=== PATIENT | male | born 1960 | race Caucasian/White ===

== ENCOUNTER 2020-03-17 02:01 | Emergency (ER) | payer OTHER ==
[2020-03-17] MEDS ORDERED: METHYLPREDNISOLONE SOD SUCC 125MG/2ML VIAL ONE (02:24)
[2020-03-17 02:38] LABS: BASOPHILS % (AUTO) 0.8 % (0.0-5.0); EOSINOPHILS % (AUTO) 15.1 % (0.0-8.0); HEMATOCRIT 40.6 % (42-54); LYMPHOCYTES % (AUTO) 21.6 % (21.0-51.0); MEAN CORPUSCULAR HEMOGLOBIN 31.3 pg (27.0-33.0); MEAN CORPUSCULAR HGB CONC 34.2 g/dL (32.0-36.0); MEAN CORPUSCULAR VOLUME 91.4 fL (79-99); MONOCYTES % (AUTO) 13.5 % (3.0-13.0); NEUTROPHILS % (AUTO) 48.5 % (40.0-77.0); PLATELET COUNT (AUTO) 193 K/uL (130-400); RED BLOOD CELL COUNT(AUTO) 4.44 MIL/uL (4.50-6.20); RED CELL DISTRIBUTION WIDTH 13.2 % (11.0-15.5); WHITE BLOOD COUNT (AUTO) 7.6 K/uL (4.8-10.8)
[2020-03-17 02:58] LABS: CREATININE 1.3 mg/dL (0.5-1.5); POTASSIUM 3.4 mmol/L (3.5-5.1)
[2020-03-17 03:02] LABS: ALBUMIN 3.7 g/dL (3.5-5.0); BILIRUBIN,TOTAL 0.7 mg/dL (0.2-1.0); TOTAL PROTEIN, SERUM 6.4 g/dL (6.0-8.3)
[2020-03-17] MEDS ORDERED: ALBUTEROL SULFATE 0.083% 2.5 MG/3 ML INH IH ONE (04:55)
[2020-03-17] MEDS ORDERED: CEFTRIAXONE SODIUM 1 GM ONE (04:58)
[2020-03-19] MEDS ORDERED: PRED20TA3 PO (08:52)
[2020-03-19] MEDS ORDERED: AZIT500T4 PO (08:56)
== END 2020-03-17 06:41 | disposition home or self-care (01) ==
LOC: EDH 02:01
DX: J44.1 Chronic obstructive pulmonary disease with (acute) exacerbation (principal); Z91.041 Radiographic dye allergy status
CPT/HCPCS: 36415; 71045; 80053; 82550; 84484; 85025; 93005; 94640 ×2; 96374; 96375; 99285; J0696; J2930

== ENCOUNTER 2020-03-17 15:37 | Inpatient (IN) | payer OTHER ==
[~2020-03-17] VITALS: Ht 177.8 cm; Wt 75.8 kg
[2020-03-17] MEDS ORDERED: IPRATROPIUM/ALBUTEROL SULFATE 3 ML SOLUTION IH ONE (16:18)
[2020-03-17] MEDS ORDERED: METHYLPREDNISOLONE SOD SUCC 125MG/2ML VIAL ONE (16:26)
[2020-03-17 16:33] LABS: BASOPHILS % (AUTO) 0.2 % (0.0-5.0); EOSINOPHILS % (AUTO) 0.2 % (0.0-8.0); HEMATOCRIT 44.1 % (42-54); LYMPHOCYTES % (AUTO) 12.8 % (21.0-51.0); MEAN CORPUSCULAR HEMOGLOBIN 30.7 pg (27.0-33.0); MEAN CORPUSCULAR HGB CONC 33.8 g/dL (32.0-36.0); MEAN CORPUSCULAR VOLUME 90.9 fL (79-99); MONOCYTES % (AUTO) 5.3 % (3.0-13.0); NEUTROPHILS % (AUTO) 80.4 % (40.0-77.0); PLATELET COUNT (AUTO) 224 K/uL (130-400); RED BLOOD CELL COUNT(AUTO) 4.85 MIL/uL (4.50-6.20); RED CELL DISTRIBUTION WIDTH 13.2 % (11.0-15.5); WHITE BLOOD COUNT (AUTO) 6.2 K/uL (4.8-10.8)
[2020-03-17 16:45] LABS: INR 0.97 (0.85-1.15); PARTIAL THROMBOPLASTIN TIME 25.6 SEC (26.3-35.5); PROTHROMBIN TIME 10.5 SEC (9.6-11.6)
[2020-03-17 16:46] LABS: CREATININE 1.3 mg/dL (0.5-1.5); POTASSIUM 4.3 mmol/L (3.5-5.1)
[2020-03-17 16:50] LABS: ALBUMIN 4.1 g/dL (3.5-5.0); BILIRUBIN,TOTAL 0.5 mg/dL (0.2-1.0); TOTAL PROTEIN, SERUM 7.3 g/dL (6.0-8.3)
[2020-03-17 17:05] LABS: B-TYPE NATRIURETIC PEPTIDE 53 pg/mL (0-100)
[2020-03-17] MEDS ORDERED: LIDOCAINE HCL 2% VISCOUS 15 ML UDCUP ONE (17:44)
[2020-03-17] MEDS ORDERED: LACTULOSE 20 GM/30 ML UDCUP PO PRN (18:00)
[2020-03-17] MEDS ORDERED: ACETAMINOPHEN 325 MG TAB PO PRN (18:00)
[2020-03-17] MEDS ORDERED: GUAIFENESIN-DM 200/20 MG 10 ML PO PRN (18:00)
[2020-03-17] MEDS: IPRATROPIUM/ALBUTEROL SULFATE 3 ML SOLUTION IH SCH ×2 (18:32→22:09)
[2020-03-17] MEDS: METHYLPREDNISOLONE SOD SUCC 40MG/ML 1ML IVP SCH (20:00)
[2020-03-17] MEDS: FAMOTIDINE 20MG TAB 20 MG TAB PO SCH (21:00)
[2020-03-17] MEDS: BENZONATATE 100 MG CAPSULE PO SCH (21:00)
[2020-03-17] MEDS ORDERED: FAMOTIDINE 20MG TAB 20 MG TAB ONE (21:58)
[2020-03-17] MEDS ORDERED: LEVETIRACETAM 500 MG TABLET PO ONE (21:59)
[2020-03-17] MEDS ORDERED: AZITHROMYCIN 500MG+NS 250ML 250 ML IV ONE (21:59)
[2020-03-17] MEDS ORDERED: TRAZODONE HCL 50 MG TAB ONE (21:59)
[2020-03-17] MEDS ORDERED: BENZONATATE 100 MG CAPSULE PO ONE (21:59)
[2020-03-18] MEDS ORDERED: METHYLPREDNISOLONE SOD SUCC 40MG/ML 1ML ONE ×4 (00:07→20:55)
[2020-03-18] MEDS: IPRATROPIUM/ALBUTEROL SULFATE 3 ML SOLUTION IH SCH ×6 (02:00→22:45)
[2020-03-18] MEDS: METHYLPREDNISOLONE SOD SUCC 40MG/ML 1ML IVP SCH ×3 (04:00→20:00)
[2020-03-18 06:40] LABS: BASOPHILS % (AUTO) 0.1 % (0.0-5.0); EOSINOPHILS % (AUTO) 0.2 % (0.0-8.0); LYMPHOCYTES % (AUTO) 8.4 % (21.0-51.0); MEAN CORPUSCULAR HEMOGLOBIN 31.1 pg (27.0-33.0); MEAN CORPUSCULAR VOLUME 91.7 fL (79-99); MONOCYTES % (AUTO) 5.6 % (3.0-13.0); NEUTROPHILS % (AUTO) 84.8 % (40.0-77.0); PLATELET COUNT (AUTO) 213 K/uL (130-400); RED BLOOD CELL COUNT(AUTO) 4.69 MIL/uL (4.50-6.20); RED CELL DISTRIBUTION WIDTH 13.2 % (11.0-15.5); WHITE BLOOD COUNT (AUTO) 10.4 K/uL (4.8-10.8)
[2020-03-18 06:59] LABS: ALANINE AMINOTRANSFERASE 42 U/L (12-78); ALBUMIN 3.8 g/dL (3.5-5.0); ASPARTATE AMINOTRANSFERASE 38 U/L (10-37); BILIRUBIN,TOTAL 0.5 mg/dL (0.2-1.0); CARBON DIOXIDE 27 mmol/L (21-32); CHLORIDE 103 mmol/L (101-111); CREATININE 1.1 mg/dL (0.5-1.5); GLOMERULAR FILTR. RATE CALC 73 mL/min (>60); GLUCOSE,RANDOM 157 mg/dL (70-105); POTASSIUM 4.4 mmol/L (3.5-5.1); SODIUM SERUM 139 mmol/L (136-145); UREA NITROGEN, BLOOD 18 mg/dL (7-18)
[2020-03-18 07:15] LABS: CRP QUANTITATIVE < 2.00 mg/L (0.00-9.0)
[2020-03-18 08:10] LABS: ERYTHROCYTE SEDIMENTATION RATE 0 MM/HR (0-20)
[2020-03-18] MEDS: BENZONATATE 100 MG CAPSULE PO SCH ×3 (09:00→21:00)
[2020-03-18] MEDS: FAMOTIDINE 20MG TAB 20 MG TAB PO SCH ×2 (09:00→21:00)
[2020-03-18] MEDS: LEVETIRACETAM 500 MG TABLET PO SCH ×2 (09:00→21:00)
[2020-03-18] MEDS: ENOXAPARIN SODIUM 30 MG/0.3 ML SQ SCH (09:00)
[2020-03-18] MEDS: BUSPIRONE HCL 5 MG TABLET PO SCH ×3 (09:00→21:00)
[2020-03-18] MEDS ORDERED: FAMOTIDINE 20MG TAB 20 MG TAB ONE ×2 (10:05→20:55)
[2020-03-18] MEDS ORDERED: ENOXAPARIN SODIUM 40 MG/0.4 ML SYRINGE SQ ONE (10:06)
[2020-03-18] MEDS ORDERED: LEVETIRACETAM 500 MG TABLET PO ONE ×2 (10:06→20:56)
[2020-03-18] MEDS ORDERED: IPRATROPIUM/ALBUTEROL SULFATE 3 ML SOLUTION IH ONE ×2 (10:25→13:23)
--- NOTE | 2020-03-18 14:25 | NUR ---
DCP CM spoke to pt discussed dc plans. Pt is independent prior to admission, lives at home alone. Denies any equipments/services. Feels safe to go back home, still drives, and arranges own needs. CM tried to call sister on facesheet Yoselin [phone] unable to reach # is not in services. DC plan to home once stable. CM to cont to follow up. Addendum: 03/18/20 at 1427 by MANOJ BECKER LVN CM Amended: Links added.
[2020-03-18] MEDS ORDERED: LACTULOSE 20 GM/30 ML UDCUP ONE (14:54)
[2020-03-18] MEDS: AZITHROMYCIN 500MG+NS 250ML 250 ML IV SCH (18:00)
[2020-03-18] MEDS ORDERED: BENZONATATE 100 MG CAPSULE PO ONE (20:55)
[2020-03-18] MEDS ORDERED: TRAZODONE HCL 50 MG TAB ONE (20:56)
[2020-03-18] MEDS ORDERED: TRAZODONE HCL 50 MG TAB PO SCH (21:00)
[2020-03-18 22:15] VITALS: BP 131/71
[2020-03-18 23:32] VITALS: BP 105/69
[2020-03-19] MEDS: IPRATROPIUM/ALBUTEROL SULFATE 3 ML SOLUTION IH SCH ×3 (01:53→09:37)
[2020-03-19] MEDS: AZITHROMYCIN 500MG+NS 250ML 250 ML IV SCH (03:32)
[2020-03-19] MEDS: METHYLPREDNISOLONE SOD SUCC 40MG/ML 1ML IVP SCH (03:32)
[2020-03-19 03:53] VITALS: BP 113/73
[2020-03-19 04:07] LABS: BASOPHILS % (AUTO) 0.1 % (0.0-5.0); LYMPHOCYTES % (AUTO) 7.4 % (21.0-51.0); MEAN CORPUSCULAR HEMOGLOBIN 30.9 pg (27.0-33.0); MEAN CORPUSCULAR HGB CONC 33.5 g/dL (32.0-36.0); MEAN CORPUSCULAR VOLUME 92.4 fL (79-99); MONOCYTES % (AUTO) 7.4 % (3.0-13.0); NEUTROPHILS % (AUTO) 83.7 % (40.0-77.0); PLATELET COUNT (AUTO) 195 K/uL (130-400); RED BLOOD CELL COUNT(AUTO) 4.33 MIL/uL (4.50-6.20); RED CELL DISTRIBUTION WIDTH 13.2 % (11.0-15.5); WHITE BLOOD COUNT (AUTO) 10.9 K/uL (4.8-10.8)
[2020-03-19 04:23] LABS: ALBUMIN 3.3 g/dL (3.5-5.0); BILIRUBIN,TOTAL 0.5 mg/dL (0.2-1.0); CREATININE 1.3 mg/dL (0.5-1.5); POTASSIUM 3.9 mmol/L (3.5-5.1)
[2020-03-19] MEDS: LEVETIRACETAM 500 MG TABLET PO SCH (08:33)
[2020-03-19] MEDS: FAMOTIDINE 20MG TAB 20 MG TAB PO SCH (08:33)
[2020-03-19] MEDS: ENOXAPARIN SODIUM 30 MG/0.3 ML SQ SCH (08:34)
[2020-03-19] MEDS: BUSPIRONE HCL 5 MG TABLET PO SCH (08:34)
[2020-03-19] MEDS: BENZONATATE 100 MG CAPSULE PO SCH (08:34)
[2020-03-19] MEDS ORDERED: PRED20TA3 PO ×2 (08:52)
[2020-03-19 08:54] VITALS: BP 134/74
[2020-03-19] MEDS ORDERED: AZIT500T4 PO ×2 (08:56)
== END 2020-03-19 11:15 | disposition home or self-care (01) | DRG 202 ==
LOC: EDH 15:37 → EDHIP 18:06 → 4CH 03-18 22:37
PROVIDERS: ADMIT Hospitalist; ATTEND Hospitalist
DX: J45.901 Unspecified asthma with (acute) exacerbation (principal); J44.1 Chronic obstructive pulmonary disease with (acute) exacerbation; G40.909 Epilepsy, unspecified, not intractable, without status epilepticus; Q85.00 Neurofibromatosis, unspecified; J02.9 Acute pharyngitis, unspecified; Z77.22 Contact with and (suspected) exposure to environmental tobacco smoke (acute) (chronic); Z88.8 Allergy status to other drugs, medicaments and biological substances; Z86.73 Personal history of transient ischemic attack (TIA), and cerebral infarction without residual deficits
CPT/HCPCS: 36415; 71045; 80053; 82550; 82728; 83605; 83880; 84145; 84484; 85025; 85610; 85651; 85730; 86140; 87040; 93005; 94640; 94664; G0378; J0456; J1650; J2920; J2930

== ENCOUNTER 2020-06-12 09:04 | Emergency (ER) | payer OTHER ==
[~2020-06-12 09:04] MED LIST: AZIT500T4 PO; PRED20TA3 PO
[2020-06-12] MEDS ORDERED: HYDROCODONE/ACETAMINOPHEN 10/325 MG TAB ONE (09:22)
[2020-06-12] MEDS ORDERED: KETOROLAC TROMETHAMINE 60 MG/2 ML VIAL ONE (09:22)
== END 2020-06-12 10:18 | disposition home or self-care (01) ==
LOC: EDH 09:04
DX: M79.672 Pain in left foot (principal)
CPT/HCPCS: 73630; 96372; 99283; J1885

== ENCOUNTER 2021-03-27 18:58 | Emergency (ER) | payer OTHER ==
[2021-03-27] MEDS ORDERED: SOLU-MEDROL 125MG VIAL ONE (19:15)
[2021-03-27] MEDS ORDERED: IPRATROPIUM/ALBUTEROL SULFATE 3 ML SOLUTION IH ONE (19:17)
[2021-03-27 19:22] LABS: BASOPHILS % (AUTO) 1.7 % (0.0-5.0); EOSINOPHILS % (AUTO) 6.9 % (0.0-8.0); HEMATOCRIT 43.9 % (42-54); MEAN CORPUSCULAR HEMOGLOBIN 29.9 pg (27.0-33.0); MEAN CORPUSCULAR HGB CONC 33.9 g/dL (32.0-36.0); MEAN CORPUSCULAR VOLUME 88.2 fL (79-99); MONOCYTES % (AUTO) 12.6 % (3.0-13.0); NEUTROPHILS % (AUTO) 62.5 % (40.0-77.0); PLATELET COUNT (AUTO) 388 K/uL (130-400); RED BLOOD CELL COUNT(AUTO) 4.98 MIL/uL (4.50-6.20); RED CELL DISTRIBUTION WIDTH 13.7 % (11.0-15.5); WHITE BLOOD COUNT (AUTO) 12.3 K/uL (4.8-10.8)
[2021-03-27 19:32] LABS: INR 0.99 (0.85-1.15); PROTHROMBIN TIME 10.8 SEC (9.6-11.6)
[2021-03-27 19:33] LABS: PARTIAL THROMBOPLASTIN TIME 28.4 SEC (26.3-35.5)
[2021-03-27 19:42] LABS: ALBUMIN 3.9 g/dL (3.5-5.0); CREATININE 1.1 mg/dL (0.5-1.5); POTASSIUM 3.6 mmol/L (3.5-5.1); TOTAL PROTEIN, SERUM 7.5 g/dL (6.0-8.3)
[2021-03-27] MEDS ORDERED: ALBUTEROL 0.083% 2.5 MG/3 ML INH IH ONE (20:16)
[2021-03-27] MEDS ORDERED: LEVOFLOXACIN 500 MG TABLET ONE (20:39)
== END 2021-03-27 21:15 | disposition home or self-care (01) ==
LOC: EDH 18:58
DX: J44.1 Chronic obstructive pulmonary disease with (acute) exacerbation (principal); J20.9 Acute bronchitis, unspecified; Z20.822 Contact with and (suspected) exposure to COVID-19; Z86.73 Personal history of transient ischemic attack (TIA), and cerebral infarction without residual deficits; Z98.890 Other specified postprocedural states; Z91.041 Radiographic dye allergy status
CPT/HCPCS: 36415; 71045; 80053; 84484; 85025; 85610; 85730; 87426; 93005; 94640 ×2; 96374; 99285; J2930; U0003

== ENCOUNTER 2022-04-28 15:23 | Inpatient (IN) | payer OTHER ==
[~2022-04-28] VITALS: Ht 177.8 cm; Wt 67.1 kg
[~2022-04-28 15:23] MED LIST changes: -AZIT500T4 PO; +DOXY100T2 PO
[2022-04-28] MEDS ORDERED: ALBUTEROL 0.083% 2.5 MG/3 ML INH IH ONE ×3 (15:25→19:00)
[2022-04-28] MEDS ORDERED: IPRATROPIUM 0.5 MG/2.5 ML INH IH ONE (15:25)
[2022-04-28] MEDS ORDERED: SOLU-MEDROL 125MG VIAL ONE (15:26)
[2022-04-28 15:50] LABS: ABG BASE EXCESS -3.9 mmol/L (-2.0-3.0); ABG OXYGEN SATURATION 97.6 % (95.0-99.0); ABG PCO2 29 mmHg (35-48)
[2022-04-28 16:11] LABS: BASOPHILS % (AUTO) 0.3 % (0.0-5.0); EOSINOPHILS % (AUTO) 0.6 % (0.0-8.0); HEMATOCRIT 40.5 % (42-54); LYMPHOCYTES % (AUTO) 13.3 % (21.0-51.0); MEAN CORPUSCULAR HEMOGLOBIN 29.6 pg (27.0-33.0); MEAN CORPUSCULAR HGB CONC 33.6 g/dL (32.0-36.0); MONOCYTES % (AUTO) 17.4 % (3.0-13.0); NEUTROPHILS % (AUTO) 65.5 % (40.0-77.0); PLATELET COUNT (AUTO) 238 K/uL (130-400); WHITE BLOOD COUNT (AUTO) 11.1 K/uL (4.8-10.8)
[2022-04-28 16:30] LABS: INR 1.02 (0.85-1.15); PROTHROMBIN TIME 11.1 SEC (9.6-11.6)
[2022-04-28 16:31] LABS: PARTIAL THROMBOPLASTIN TIME 23.4 SEC (26.3-35.5)
[2022-04-28 16:33] LABS: CARBON DIOXIDE 29 mmol/L (21-32); CHLORIDE 101 mmol/L (101-111); CREATININE 1.2 mg/dL (0.5-1.5); GLOMERULAR FILTR. RATE CALC 65 mL/min (>60); GLUCOSE,RANDOM 196 mg/dL (70-105); POTASSIUM 3.9 mmol/L (3.5-5.1); SODIUM SERUM 138 mmol/L (136-145); UREA NITROGEN, BLOOD 20 mg/dL (7-18)
[2022-04-28 16:46] LABS: B-TYPE NATRIURETIC PEPTIDE 46 pg/mL (0-100)
[2022-04-28 16:56] LABS: ALANINE AMINOTRANSFERASE 116 U/L (12-78); ALBUMIN 2.9 g/dL (3.5-5.0); ASPARTATE AMINOTRANSFERASE 127 U/L (10-37); BILIRUBIN,TOTAL 0.4 mg/dL (0.2-1.0); TOTAL PROTEIN, SERUM 5.7 g/dL (6.0-8.3)
[2022-04-28 16:57] LABS: CREATINE KINASE, TOTAL 1546 U/L (21-232)
[2022-04-28] MEDS ORDERED: 0.9%NACL 1000ML 1,000 ML IV ONE (17:00)
[2022-04-28 17:01] LABS: ALCOHOL, BLOOD < 3 mg/dL (0-10)
[2022-04-28] MEDS ORDERED: MAGNESIUM OXIDE 400 MG TABLET PO SCH (18:30)
[2022-04-28 18:36] LABS: APPEARANCE,URINE CLEAR (CLEAR); BILIRUBIN,URINE NEGATIVE (NEGATIVE); COLOR,URINE YELLOW (YELLOW); GLUCOSE, URINE (UA) NEGATIVE (NEGATIVE); KETONES,URINE 5 mg/dL (NEGATIVE); LEUKOCYTE ESTERASE ,URINE NEGATIVE (NEGATIVE); NITRATE,URINE NEGATIVE (NEGATIVE); OCCULT BLOOD,URINE NEGATIVE (NEGATIVE); PROTEIN,URINE TRACE mg/dL (NEGATIVE); UROBILINOGEN,URINE 0.2 mg/dL (0.2-1.0)
[2022-04-28 18:51] LABS: AMPHET/METH SCREEN,URINE NEGATIVE (NEGATIVE); BARBITURATE SCREEN, URINE NEGATIVE (NEGATIVE); CANNABINOID SCREEN,URINE NEGATIVE (NEGATIVE); COCAINE SCREEN,URINE NEGATIVE (NEGATIVE); OPIATE SCREEN,URINE NEGATIVE (NEGATIVE); PHENCYCLIDINE SCREEN,URINE NEGATIVE (NEGATIVE)
[2022-04-28 19:02] LABS: BENZODIAZEPINES SCREEN,URINE NEGATIVE (NEGATIVE)
[2022-04-28 19:23] LABS: BACTERIA,URINE Rare /HPF (None Seen); CALCIUM PHOSPHATE CRYSTALS,UR Few /LPF (None Seen); RBC,URINE 0-1 /HPF (0-1); SQUAMOUS EPITHELIAL CELL,UR Rare /HPF (0-2); WBC,URINE 0-1 /HPF (0-1)
[2022-04-28] MEDS ORDERED: ACETAMINOPHEN 325 MG TAB PO PRN ×2 (20:30)
[2022-04-28] MEDS ORDERED: ONDANSETRON 4MG INJ IV PRN (20:30)
[2022-04-28] MEDS ORDERED: FAMOTIDINE 20MG VIAL IV SCH (21:00)
[2022-04-28] MEDS: 0.9%NACL 1000ML 1,000 ML IV SCH (22:55)
[2022-04-28] MEDS: CEFTRIAXONE 1G VIAL IVP SCH (22:56)
[2022-04-28] MEDS: BUDESONIDE 0.5 MG/2 ML INH IH SCH (22:57)
[2022-04-28] MEDS: IPRATROPIUM/ALBUTEROL SULFATE 3 ML SOLUTION IH SCH (23:02)
[2022-04-29] MEDS: MORPHINE 2 MG SYG IV PRN ×5 (00:16→22:26)
[2022-04-29] MEDS ORDERED: MAGNESIUM 2GM PREMIX 50ML 50 ML IV ONE (02:21)
[2022-04-29] MEDS ORDERED: MAGNESIUM 2GM PREMIX 50ML 50 ML IV PRN (02:30)
[2022-04-29 04:22] LABS: BASOPHILS % (AUTO) 0.2 % (0.0-5.0); HEMATOCRIT 36.7 % (42-54); LYMPHOCYTES % (AUTO) 11.3 % (21.0-51.0); MEAN CORPUSCULAR HEMOGLOBIN 28.9 pg (27.0-33.0); MEAN CORPUSCULAR HGB CONC 33.5 g/dL (32.0-36.0); MEAN CORPUSCULAR VOLUME 86.4 fL (79-99); MONOCYTES % (AUTO) 16.8 % (3.0-13.0); NEUTROPHILS % (AUTO) 67.6 % (40.0-77.0); PLATELET COUNT (AUTO) 223 K/uL (130-400); RED BLOOD CELL COUNT(AUTO) 4.25 MIL/uL (4.50-6.20); RED CELL DISTRIBUTION WIDTH 13.9 % (11.0-15.5); WHITE BLOOD COUNT (AUTO) 9.3 K/uL (4.8-10.8)
[2022-04-29 05:00] LABS: ALBUMIN 2.5 g/dL (3.5-5.0); BILIRUBIN,TOTAL 0.4 mg/dL (0.2-1.0); CREATININE 0.8 mg/dL (0.5-1.5); POTASSIUM 3.8 mmol/L (3.5-5.1); TOTAL PROTEIN, SERUM 5.1 g/dL (6.0-8.3)
[2022-04-29 05:36] LABS: ERYTHROCYTE SEDIMENTATION RATE 4 MM/HR (0-20)
[2022-04-29] MEDS: 0.9%NACL 1000ML 1,000 ML IV SCH ×2 (06:30→13:28)
[2022-04-29] MEDS: IPRATROPIUM/ALBUTEROL SULFATE 3 ML SOLUTION IH SCH ×3 (06:35→18:22)
[2022-04-29] MEDS: BUDESONIDE 0.5 MG/2 ML INH IH SCH ×2 (06:35→18:22)
[2022-04-29 07:15] VITALS: BP 131/57
[2022-04-29] MEDS: PANTOPRAZOLE 40 MG/VIAL IVP SCH (08:49)
[2022-04-29] MEDS: CEFTRIAXONE 1G VIAL IVP SCH ×2 (08:49→20:17)
[2022-04-29 11:10] VITALS: BP 144/66
[2022-04-29 16:15] VITALS: BP 125/77
[2022-04-29] MEDS ORDERED: IOHEXOL 350 MG/ML 100ML INFUS..BTL IV ONE (18:32)
[2022-04-29 20:22] VITALS: BP 127/75
[2022-04-30] VITALS (7 sets, daily range): BP systolic 114–132; BP diastolic 64–84
[2022-04-30] MEDS: 0.9%NACL 1000ML 1,000 ML IV SCH ×2 (02:24→12:13)
[2022-04-30 03:36] LABS: HEMATOCRIT 36.2 % (42-54); MEAN CORPUSCULAR HEMOGLOBIN 29.6 pg (27.0-33.0); MEAN CORPUSCULAR VOLUME 87.2 fL (79-99); RED BLOOD CELL COUNT(AUTO) 4.15 MIL/uL (4.50-6.20); RED CELL DISTRIBUTION WIDTH 14.2 % (11.0-15.5); WHITE BLOOD COUNT (AUTO) 9.8 K/uL (4.8-10.8)
[2022-04-30 04:13] LABS: CREATININE 0.9 mg/dL (0.5-1.5); MAGNESIUM 2.2 mg/dL (1.80-2.40); POTASSIUM 3.9 mmol/L (3.5-5.1)
[2022-04-30] MEDS: BUDESONIDE 0.5 MG/2 ML INH IH SCH ×2 (05:14→18:24)
[2022-04-30] MEDS: IPRATROPIUM/ALBUTEROL SULFATE 3 ML SOLUTION IH SCH ×4 (05:15→23:00)
[2022-04-30] MEDS: MORPHINE 2 MG SYG IV PRN ×4 (05:26→22:01)
[2022-04-30] MEDS: CEFTRIAXONE 1G VIAL IVP SCH ×2 (09:14→21:59)
[2022-04-30] MEDS: PANTOPRAZOLE 40 MG/VIAL IVP SCH (09:14)
[2022-04-30] MEDS ORDERED: PREDNISONE 20 MG TABLET PO ONE (12:00)
[2022-04-30] MEDS ORDERED: SOLU-MEDROL 40MG VIAL IVP SCH (12:00)
[2022-04-30] MEDS ORDERED: TRAZODONE HCL 50 MG TAB ONE (21:58)
[2022-04-30] MEDS ORDERED: TRAZODONE HCL 50 MG TAB PO PRN (22:00)
[2022-04-30] MEDS: SOLU-MEDROL 40MG VIAL IVP SCH (22:00)
[2022-05-01] MEDS: 0.9%NACL 1000ML 1,000 ML IV SCH ×2 (01:25→08:30)
[2022-05-01 03:48] VITALS: BP 121/61
[2022-05-01 04:18] LABS: HEMATOCRIT 39.8 % (42-54); MEAN CORPUSCULAR HEMOGLOBIN 29.4 pg (27.0-33.0); MEAN CORPUSCULAR HGB CONC 33.4 g/dL (32.0-36.0); MEAN CORPUSCULAR VOLUME 87.9 fL (79-99); RED BLOOD CELL COUNT(AUTO) 4.53 MIL/uL (4.50-6.20); RED CELL DISTRIBUTION WIDTH 14.2 % (11.0-15.5); WHITE BLOOD COUNT (AUTO) 7.6 K/uL (4.8-10.8)
[2022-05-01 04:39] LABS: CREATININE 0.8 mg/dL (0.5-1.5); POTASSIUM 4.3 mmol/L (3.5-5.1)
[2022-05-01] MEDS: MORPHINE 2 MG SYG IV PRN (06:06)
[2022-05-01] MEDS: IPRATROPIUM/ALBUTEROL SULFATE 3 ML SOLUTION IH SCH ×2 (06:16→11:12)
[2022-05-01] MEDS: BUDESONIDE 0.5 MG/2 ML INH IH SCH (06:16)
[2022-05-01 08:03] VITALS: BP 101/65
[2022-05-01] MEDS ORDERED: ALBU8.5H8 IH (08:41)
[2022-05-01] MEDS ORDERED: DOXY100T2 PO (08:41)
[2022-05-01] MEDS ORDERED: PRED20TA3 PO (08:41)
[2022-05-01] MEDS ORDERED: TIOT18CA3 IH (08:41)
[2022-05-01] MEDS: CEFTRIAXONE 1G VIAL IVP SCH (09:03)
[2022-05-01] MEDS: PANTOPRAZOLE 40 MG/VIAL IVP SCH (09:04)
[2022-05-01] MEDS: SOLU-MEDROL 40MG VIAL IVP SCH (09:04)
[2022-05-01] MEDS ORDERED: BUDE0.5A3 IH (10:57)
[2022-05-01 11:09] VITALS: BP 108/61
== END 2022-05-01 15:00 | disposition home or self-care (01) | DRG 189 ==
LOC: EDH 15:23 → EDHIP 18:42 → 4CH 04-29 01:30
PROVIDERS: ADMIT Hospitalist; ATTEND Hospitalist
PROC: 5A09357 Assistance with Respiratory Ventilation, Less than 24 Consecutive Hours, Continuous Positive Airway Pressure (ICD-10-PCS; principal; 2022-04-28)
DX: J96.01 Acute respiratory failure with hypoxia (principal); J44.1 Chronic obstructive pulmonary disease with (acute) exacerbation; M62.82 Rhabdomyolysis; I69.354 Hemiplegia and hemiparesis following cerebral infarction affecting left non-dominant side; J45.901 Unspecified asthma with (acute) exacerbation; Z20.822 Contact with and (suspected) exposure to COVID-19; F41.9 Anxiety disorder, unspecified; E83.42 Hypomagnesemia; G40.909 Epilepsy, unspecified, not intractable, without status epilepticus; Z82.49 Family history of ischemic heart disease and other diseases of the circulatory system; D72.829 Elevated white blood cell count, unspecified
CPT/HCPCS: 36415; 36600; 71045; 71250; 78582; 80048; 80053; 80305; 81001; 82550; 82803; 82948; 83520; 83735; 83880; 84484; 85025; 85027; 85610; 85651; 85730; 86235; 87040; 87635; 93005; 93306; 93356; 94640; 94660; 94664; 94760; A9540; A9558; C9113; G0378; J0696; J2920; J2930; J3475; J7030; Q9967

== ENCOUNTER 2022-06-10 10:45 | Observation (INO) | payer OTHER ==
[~2022-06-10] VITALS: Ht 177.8 cm; Wt 68.1 kg
[~2022-06-10 10:45] MED LIST changes: +ALBU8.5H8 IH; +BUDE0.5A3 IH; +TIOT18CA3 IH
[2022-06-10] MEDS ORDERED: TRAM50TA4 PO (10:53)
[2022-06-10 11:00] LABS: BASOPHILS % (AUTO) 0.9 % (0.0-5.0); EOSINOPHILS % (AUTO) 11.9 % (0.0-8.0); HEMATOCRIT 37.7 % (42-54); LYMPHOCYTES % (AUTO) 19.4 % (21.0-51.0); MEAN CORPUSCULAR HEMOGLOBIN 30.2 pg (27.0-33.0); MEAN CORPUSCULAR HGB CONC 34.5 g/dL (32.0-36.0); MEAN CORPUSCULAR VOLUME 87.7 fL (79-99); MONOCYTES % (AUTO) 10.2 % (3.0-13.0); NEUTROPHILS % (AUTO) 56.8 % (40.0-77.0); PLATELET COUNT (AUTO) 219 K/uL (130-400); RED CELL DISTRIBUTION WIDTH 12.9 % (11.0-15.5); WHITE BLOOD COUNT (AUTO) 7.6 K/uL (4.8-10.8)
[2022-06-10] MEDS ORDERED: TRAMADOL HCL 50 MG TABLET PO ONE (11:00)
[2022-06-10] MEDS ORDERED: ASPIRIN 81MG CHEW TAB PO ONE (11:00)
[2022-06-10 11:15] LABS: ALBUMIN 3.2 g/dL (3.5-5.0); POTASSIUM 3.8 mmol/L (3.5-5.1); TOTAL PROTEIN, SERUM 6.2 g/dL (6.0-8.3)
[2022-06-10] MEDS ORDERED: NITROGLYCERIN 0.4 MG SL TAB SL PRN (12:00)
[2022-06-10] MEDS ORDERED: ACETAMINOPHEN 325 MG TAB PO PRN ×2 (12:00)
[2022-06-10] MEDS ORDERED: ONDANSETRON 4MG INJ IV PRN (12:00)
[2022-06-10] MEDS ORDERED: SOLU-MEDROL 125MG VIAL IVP ONE (12:00)
[2022-06-10] MEDS ORDERED: ALBUTEROL 0.083% 2.5 MG/3 ML INH IH ONE (12:00)
[2022-06-10 12:11] LABS: INR 0.96 (0.85-1.15); PROTHROMBIN TIME 10.5 SEC (9.6-11.6)
[2022-06-10 12:12] LABS: PARTIAL THROMBOPLASTIN TIME 29.3 SEC (26.3-35.5)
[2022-06-10] MEDS: 0.9%NACL 1000ML 1,000 ML IV SCH ×2 (12:32→22:00)
[2022-06-10 12:46] LABS: AMMONIA 18 umol/L (11-32); CREATINE KINASE, TOTAL 91 U/L (21-232); MYOGLOBIN 48 ng/mL (10-92); PHOSPHORUS 3.8 mg/dL (2.5-4.9)
[2022-06-10] MEDS: ZOSYN 3.375GM+NS 50ML 50 ML IV SCH ×2 (14:29→21:48)
[2022-06-10 16:03] VITALS: BP 133/68
[2022-06-10 20:53] VITALS: BP 146/84
[2022-06-10] MEDS: FAMOTIDINE 20MG VIAL IV SCH (21:48)
[2022-06-11 00:17] VITALS: BP 126/75
[2022-06-11 04:32] VITALS: BP 133/74
[2022-06-11] MEDS: ZOSYN 3.375GM+NS 50ML 50 ML IV SCH (04:56)
[2022-06-11 08:00] VITALS: BP 147/87
[2022-06-11] MEDS: FAMOTIDINE 20MG VIAL IV SCH (08:40)
[2022-06-11] MEDS ORDERED: ENOXAPARIN SODIUM 40 MG/0.4 ML SYRINGE SQ SCH (09:00)
[2022-06-11] MEDS ORDERED: TIOT4MIS2 IH (11:17)
[2022-06-11] MEDS ORDERED: ALBU8.5H8 IH (11:20)
[2022-06-11] MEDS ORDERED: FLUT1BLS IH (11:20)
[2022-06-11] MEDS ORDERED: PANT40TA55 PO (11:37)
[2022-06-11 12:00] VITALS: BP 126/73
== END 2022-06-11 12:45 | disposition home or self-care (01) ==
LOC: EDH 10:45 → EDHIP 11:47 → 3BH 15:02
PROVIDERS: ADMIT Internal Medicine; ATTEND Internal Medicine
DX: R07.89 Other chest pain (principal); J44.9 Chronic obstructive pulmonary disease, unspecified; Q85.00 Neurofibromatosis, unspecified; K21.9 Gastro-esophageal reflux disease without esophagitis; I07.1 Rheumatic tricuspid insufficiency; F10.20 Alcohol dependence, uncomplicated; F17.200 Nicotine dependence, unspecified, uncomplicated; Z79.899 Other long term (current) drug therapy; Z86.73 Personal history of transient ischemic attack (TIA), and cerebral infarction without residual deficits
CPT/HCPCS: 96361; 96365; 96366 ×2; 96375 ×2; 99285; 82550 ×3; 83735; 84100; 83874 ×3; 84484 ×4; 80053; 82140; 85025; 85610; 85730; 36415 ×2; 71045; 92610; 93005; 94640; 84145; 96376; 96372; 97161; G0378 ×24; J3490 ×2; J7030; J2930; J2543 ×3; J1650

== ENCOUNTER 2022-08-11 14:43 | Emergency (ER) | payer OTHER ==
[~2022-08-11 14:43] MED LIST changes: -DOXY100T2 PO; +FLUT1BLS IH; +PANT40TA55 PO; -TIOT18CA3 IH; +TIOT4MIS2 IH
[2022-08-11] MEDS ORDERED: IPRATROPIUM/ALBUTEROL SULFATE 3 ML SOLUTION IH ONE ×3 (14:51→15:30)
[2022-08-11 15:21] LABS: BASOPHILS % (AUTO) 0.6 % (0.0-5.0); EOSINOPHILS % (AUTO) 5.2 % (0.0-8.0); HEMATOCRIT 40.7 % (42-54); LYMPHOCYTES % (AUTO) 16.4 % (21.0-51.0); MEAN CORPUSCULAR HEMOGLOBIN 29.4 pg (27.0-33.0); MEAN CORPUSCULAR HGB CONC 34.2 g/dL (32.0-36.0); MONOCYTES % (AUTO) 9.2 % (3.0-13.0); NEUTROPHILS % (AUTO) 67.8 % (40.0-77.0); PLATELET COUNT (AUTO) 183 K/uL (130-400); RED BLOOD CELL COUNT(AUTO) 4.73 MIL/uL (4.50-6.20); RED CELL DISTRIBUTION WIDTH 12.9 % (11.0-15.5); WHITE BLOOD COUNT (AUTO) 8.3 K/uL (4.8-10.8)
[2022-08-11] MEDS ORDERED: SOLU-MEDROL 125MG VIAL IVP ONE (15:30)
[2022-08-11 15:32] LABS: CREATININE 1.3 mg/dL (0.5-1.5); POTASSIUM 3.1 mmol/L (3.5-5.1)
[2022-08-11 15:36] LABS: ALBUMIN 3.3 g/dL (3.5-5.0); TOTAL PROTEIN, SERUM 6.6 g/dL (6.0-8.3)
[2022-08-11 15:58] LABS: B-TYPE NATRIURETIC PEPTIDE 25 pg/mL (0-100)
[2022-08-11 17:24] VITALS: BP 118/74
[2022-08-11] MEDS ORDERED: METH4TAB3 PO (17:25)
[2022-08-11] MEDS ORDERED: CEPH500B PO (17:25)
== END 2022-08-11 17:36 | disposition home or self-care (01) ==
LOC: EDH 14:43
DX: J44.9 Chronic obstructive pulmonary disease, unspecified (principal); Z79.51 Long term (current) use of inhaled steroids; Z79.52 Long term (current) use of systemic steroids; Z88.8 Allergy status to other drugs, medicaments and biological substances
CPT/HCPCS: 99285; 96374; 71045; 84484; 80053; 83880; 85025; 36415; 93005; 94640 ×2; J2930